=== PATIENT | female | born 1965 ===

== ENCOUNTER 2022-09-25 05:55 | Day surgery (SDC) | payer OTHER ==
[~2022-09-25] VITALS: Ht 157.5 cm; Wt 113.4 kg
[~2022-09-25 05:55] MED LIST: CLONAZEPAM0.5 MG PO; ENBREL50 MG/1 M2 SUBCUTANEO; FOLIC ACID0.8 M1 PO; METHOTREXATE2.5 MG PO; PAXIL30 MG PO
[2022-09-25] MEDS ORDERED: PERCOCET 5-3251 EACH PO (10:29)
== END 2022-09-25 13:55 | disposition home or self-care (01) ==
LOC: CIR.AMB 05:55
PROVIDERS: ATTEND Surgery
DX: D35.1 Benign neoplasm of parathyroid gland (principal); E21.0 Primary hyperparathyroidism; Z20.822 Contact with and (suspected) exposure to COVID-19